=== PATIENT | female | born 1990 | race Two or more races ===

== ENCOUNTER 2018-10-05 20:07 | Emergency (ER) | payer MEDICAID ==
[~2018-10-05] VITALS: Ht 154.9 cm; Wt 57.6 kg
[2018-10-05 20:39] VITALS: BP 122/68
== END 2018-10-05 22:50 | disposition left against medical advice (07) ==
LOC: ER 20:18
DX: M54.5 Low back pain (principal); V49.9XXA Car occupant (driver) (passenger) injured in unspecified traffic accident, initial encounter; Y93.89 Activity, other specified; Y92.410 Unspecified street and highway as the place of occurrence of the external cause; Y99.8 Other external cause status; Z53.21 Procedure and treatment not carried out due to patient leaving prior to being seen by health care provider
CPT/HCPCS: 72100

== ENCOUNTER 2019-03-09 05:18 | Emergency (ER) | payer MEDICAID ==
[~2019-03-09] VITALS: Ht 154.9 cm; Wt 54.4 kg
[2019-03-09 06:40] VITALS: BP 120/77
[2019-03-09] MEDS ORDERED: KETOROLAC TROMETH 60MG/2ML VIAL IM ONE (06:45)
== END 2019-03-09 07:21 | disposition home or self-care (01) ==
LOC: ER 05:18
DX: S16.1XXA Strain of muscle, fascia and tendon at neck level, initial encounter (principal); M54.12 Radiculopathy, cervical region; Z33.1 Pregnant state, incidental; F17.210 Nicotine dependence, cigarettes, uncomplicated; Z88.8 Allergy status to other drugs, medicaments and biological substances; X50.1XXA Overexertion from prolonged static or awkward postures, initial encounter; Y93.89 Activity, other specified; Y92.89 Other specified places as the place of occurrence of the external cause; Y99.8 Other external cause status
CPT/HCPCS: 81025; 96372; 99283; J1885

== ENCOUNTER 2020-03-11 17:27 | Emergency (ER) | payer MEDICAID, OTHER ==
[~2020-03-11] VITALS: Ht 154.9 cm; Wt 67.6 kg
[2020-03-11 17:45] VITALS: BP 128/80
== END 2020-03-11 20:46 | disposition home or self-care (01) ==
LOC: ER 17:27
DX: S46.912A Strain of unspecified muscle, fascia and tendon at shoulder and upper arm level, left arm, initial encounter (principal); M62.838 Other muscle spasm; M54.2 Cervicalgia; F17.210 Nicotine dependence, cigarettes, uncomplicated; V43.62XA Car passenger injured in collision with other type car in traffic accident, initial encounter; Y93.89 Activity, other specified; Y92.488 Other paved roadways as the place of occurrence of the external cause; Y99.8 Other external cause status
CPT/HCPCS: 72040

== ENCOUNTER 2021-10-21 07:36 | Observation (INO) | payer MEDICAID ==
[~2021-10-21 07:36] MED LIST: PREN-96 PO
[2021-11-12] MEDS ORDERED: METH500T22 PO (20:27)
[2021-11-12] MEDS ORDERED: DULO20CA PO (20:28)
[2021-11-20] MEDS ORDERED: CEPH-322 PO (15:32)
== END 2021-11-20 15:50 | disposition home or self-care (01) ==
LOC: LDRP 11-20 14:51
PROVIDERS: ADMIT Obstetrics & Gynecology Obstetrics; ATTEND Obstetrics & Gynecology Obstetrics
DX: O47.03 False labor before 37 completed weeks of gestation, third trimester (principal); O99.323 Drug use complicating pregnancy, third trimester; F12.90 Cannabis use, unspecified, uncomplicated; Z3A.33 33 weeks gestation of pregnancy; Z87.891 Personal history of nicotine dependence
CPT/HCPCS: 59025; 81002; 94760; G0378

== ENCOUNTER 2021-11-12 16:10 | Observation (INO) | payer MEDICAID ==
[~2021-11-12] VITALS: Ht 154.9 cm; Wt 67.1 kg
[2021-11-12 17:53] LABS: Alcohol, Urine < 3.0 mg/dL (0-10); Barbiturate Scree,Urine NEGATIVE (NEGATIVE); Benzodiazephine Screen, Urine NEGATIVE (NEGATIVE); Cocaine Screen, Urine NEGATIVE (NEGATIVE); Opiate Scree,Urine NEGATIVE (NEGATIVE); Phencyclidine Screen, Urine NEGATIVE (NEGATIVE)
[2021-11-12] MEDS ORDERED: LACTATED RINGER'S 1,000 ML IV ONE (18:00)
[2021-11-12] MEDS ORDERED: TERBUTALINE SULFATE 1 MG/ML 1ML VIAL SC SCH (19:00)
[2021-11-12 19:06] LABS: Amphetamine Screen, Urine POSITIVE (NEGATIVE); Cannabinoid Screen, Urine 105/POS (NEGATIVE)
[2021-11-12 19:21] LABS: Urine Bacteria MANY /hpf (None Seen); Urine Blood Negative /uL (Negative); Urine Specific Gravity 1.012 (1.001-1.035); Urine WBC 4 /hpf (0 - 5)
[2021-11-12] MEDS ORDERED: ceFAZolin 1GM/50ML 50 ML IV ONE (20:00)
[2021-11-12] MEDS ORDERED: METH500T22 PO (20:27)
[2021-11-12] MEDS ORDERED: DULO20CA PO (20:28)
== END 2021-11-12 22:25 | disposition home or self-care (01) ==
LOC: LDRP 16:10 → UNDOADMOB 16:10 → LDRP 16:26 → UNDODISOB 22:25
PROVIDERS: ADMIT Obstetrics & Gynecology; ATTEND Obstetrics & Gynecology
DX: O60.03 Preterm labor without delivery, third trimester (principal); O42.913 Preterm premature rupture of membranes, unspecified as to length of time between rupture and onset of labor, third trimester; Z3A.32 32 weeks gestation of pregnancy; Z98.891 History of uterine scar from previous surgery; Z79.899 Other long term (current) drug therapy
CPT/HCPCS: 59025; 76815; 76817; 76818; 80307; 81001; 81002; 94760; 96361; 96365; 96372; G0378; J0690; J3105; 96360

== ENCOUNTER 2021-12-15 11:58 | Observation (INO) | payer MEDICAID ==
[~2021-12-15] VITALS: Ht 154.9 cm; Wt 73.9 kg
[~2021-12-15 11:58] MED LIST changes: +CEPH-322 PO; +DULO20CA PO; +METH500T22 PO
[2021-12-15 12:57] LABS: Alcohol, Urine < 3.0 mg/dL (0-10); Amphetamine Screen, Urine NEGATIVE (NEGATIVE); Barbiturate Scree,Urine NEGATIVE (NEGATIVE); Benzodiazephine Screen, Urine NEGATIVE (NEGATIVE); Cannabinoid Screen, Urine NEGATIVE (NEGATIVE); Cocaine Screen, Urine NEGATIVE (NEGATIVE); Opiate Scree,Urine NEGATIVE (NEGATIVE); Phencyclidine Screen, Urine NEGATIVE (NEGATIVE)
[2021-12-15 13:30] LABS: Urine Bacteria FEW /hpf (None Seen); Urine Blood Negative /uL (Negative); Urine Specific Gravity 1.005 (1.001-1.035); Urine WBC 4 /hpf (0 - 5)
[2021-12-15 14:17] LABS: Hematocrit 34.7 % (36.0-46.0); Hemoglobin 11.7 g/dL (12.2-16.2); Mean Corpuscular Hemoglobin 27.9 pg (28.0-32.0); Mean Corpuscular Hgb Conc. 33.7 g/dL (32.0-36.0); Mean Corpuscular Volume 82.8 fL (80.0-100.0); Red Blood Cells 4.19 10^6/uL (4.0-5.20); Red Cell Distribution Width 14.1 % (11.8-14.3); White Blood Cell 10.8 10^3/uL (4.4-10.8)
[2021-12-15 14:20] LABS: Basophils % (manual) 0 (0.0-2.0); Blast Cells 0; Myelocytes % 0; Promyelocytes % 0; Reactive Lymphocytes 0
[2021-12-15 15:52] LABS: Band Neutrophils % (manual) 4; Eosinophils % (manual) 1 (0-7); Lymphocytes % (manual) 22 (10.0-50.0); Metamyelocytes % 3; Monocytes % (manual) 6 (0-12)
[2021-12-16 06:07] LABS: RPR Non Reactive (Non Reactive)
== END 2021-12-15 14:44 | disposition home or self-care (01) ==
LOC: UNDOADMOB 11:58 → LDRP 11:58
PROVIDERS: ADMIT Obstetrics & Gynecology; ATTEND Obstetrics & Gynecology
DX: O36.5930 Maternal care for other known or suspected poor fetal growth, third trimester, not applicable or unspecified (principal); O36.8930 Maternal care for other specified fetal problems, third trimester, not applicable or unspecified; Z3A.37 37 weeks gestation of pregnancy; Z79.899 Other long term (current) drug therapy
CPT/HCPCS: 36415; 59025; 76818; 80307; 81001; 81002; 83036; 85007; 85027; 86592; 87491; 87591; 94760; G0378

== ENCOUNTER 2021-12-22 17:00 | Inpatient (IN) | payer MEDICAID ==
[~2021-12-22] VITALS: Ht 154.9 cm; Wt 77.1 kg
[2021-12-24] MEDS ORDERED: PHENYLEPHRINE HCL 10 MG/ML VL IV ONE (13:40)
[2021-12-24] MEDS ORDERED: LACTATED RINGER'S 1,000 ML IV ONE (16:00)
[2021-12-24] MEDS ORDERED: ceFAZolin 1GM/50ML 50 ML IV ONE ×2 (16:00→16:28)
[2021-12-24] MEDS ORDERED: LACTATED RINGER'S 1,000 ML IV SCH (16:00)
[2021-12-24] MEDS ORDERED: fentaNYL CITRATE 100 MCG/2 ML VL ONE (16:35)
[2021-12-24] MEDS ORDERED: MORPHINE SULF PF 5 MG/10 ML VIAL ONE (16:35)
[2021-12-24] MEDS ORDERED: HYDR-4902 PO (16:36)
[2021-12-24] MEDS ORDERED: DOCU-94 PO (16:36)
[2021-12-24] MEDS ORDERED: IBUP800T27 PO (16:36)
[2021-12-24] MEDS ORDERED: ceFAZolin 1GM/50ML 50 ML IV SCH ×2 (16:45→22:00)
[2021-12-24] MEDS ORDERED: ONDANSETRON HCL 4 MG/2 ML VIAL IV PRN (16:45)
[2021-12-24] MEDS ORDERED: LACT. RINGERS/OXYTOCIN 20UNITS 1,000 ML IV ONE (16:45)
[2021-12-24 17:12] LABS: Eosinophils # (auto) 0.2 10 ^3/uL (0-0.8); Eosinophils % (auto) 1.6 % (0.0-7.0); Hemoglobin 11.3 g/dL (12.2-16.2); Lymphocytes % (auto) 12.4 % (10.0-50.0); Mean Corpuscular Hgb Conc. 32.1 g/dL (32.0-36.0); Mean Corpuscular Volume 83.6 fL (80.0-100.0); Monocytes # (auto) 0.8 10 ^3/uL (0-1.3)
[2021-12-24 17:14] LABS: Basophils # (auto) 0 10 ^3/uL (0-0.2); Basophils % (auto) 0.4 % (0.0-2.0); Hematocrit 35.3 % (36.0-46.0); Lymphocytes # (auto) 1.6 10 ^3/uL (0.4-5.4); Mean Corpuscular Hemoglobin 26.8 pg (28.0-32.0); Monocytes % (auto) 5.8 % (0.0-12.0); Neutrophils # (auto) 10.6 10 ^3/uL (1.6-8.6); Neutrophils % (auto) 79.8 % (37.0-80.0); Red Blood Cells 4.22 10^6/uL (4.0-5.20); Red Cell Distribution Width 14.3 % (11.8-14.3); White Blood Cell 13.3 10^3/uL (4.4-10.8)
[2021-12-24 17:25] LABS: Urine Bacteria FEW /hpf (None Seen); Urine Blood 1+ /uL (Negative); Urine Specific Gravity 1.011 (1.001-1.035); Urine WBC 109 /hpf (0 - 5)
[2021-12-24] MEDS ORDERED: oxyTOCIN 10 UNIT/ML 10ML VIAL ONE (17:25)
[2021-12-24] MEDS ORDERED: ONDANSETRON HCL 4 MG/2 ML VIAL ONE (17:25)
[2021-12-24] MEDS ORDERED: METOCLOPRAMIDE HCL 5MG/ml INJ 2ml VIAL ONE (17:25)
[2021-12-24 17:29] LABS: Albumin 2.4 g/dL (3.4-5.0); Calcium 8.2 mg/dL (8.5-10.1)
[2021-12-24 17:30] LABS: Alcohol, Urine < 3.0 mg/dL (0-10); Amphetamine Screen, Urine NEGATIVE (NEGATIVE); Barbiturate Scree,Urine NEGATIVE (NEGATIVE); Benzodiazephine Screen, Urine NEGATIVE (NEGATIVE); Cocaine Screen, Urine NEGATIVE (NEGATIVE); Opiate Scree,Urine NEGATIVE (NEGATIVE); Phencyclidine Screen, Urine NEGATIVE (NEGATIVE)
[2021-12-24 17:32] LABS: Bilirubin, Total 0.2 mg/dL (0.2-1.0); Total Protein 6.5 g/dL (6.4-8.2)
[2021-12-24 17:36] LABS: INR 0.86 (0.9-1.15); Partial Thromboplastin Time 25.4 sec (24.6-33.4)
[2021-12-24 17:38] LABS: Cannabinoid Screen, Urine POSITIVE (NEGATIVE)
[2021-12-24 20:00] VITALS: BP 99/70
[2021-12-24] MEDS ORDERED: ACETAMINOPHEN IV 1000 MG/100ML (10MG/ML) IV PRN (20:30)
[2021-12-24] MEDS ORDERED: GUM (CHEWING) 1 GUM CHEW CHEW ONE (20:30)
[2021-12-24 21:00] VITALS: BP_SYST 118; BP_SYST 123; BP_DIAS 60; BP_DIAS 69
[2021-12-24 22:00] VITALS: BP 110/69
[2021-12-24 23:00] VITALS: BP_SYST 112; BP_SYST 120; BP_DIAS 64; BP_DIAS 76
[2021-12-24 23:25] LABS: Basophils # (auto) 0.1 10 ^3/uL (0-0.2); Basophils % (auto) 0.6 % (0.0-2.0); Eosinophils # (auto) 0.3 10 ^3/uL (0-0.8); Eosinophils % (auto) 1.4 % (0.0-7.0); Hematocrit 36.2 % (36.0-46.0); Lymphocytes # (auto) 1.8 10 ^3/uL (0.4-5.4); Mean Corpuscular Hemoglobin 27.6 pg (28.0-32.0); Mean Corpuscular Volume 83.7 fL (80.0-100.0); Monocytes # (auto) 0.8 10 ^3/uL (0-1.3); Monocytes % (auto) 4.6 % (0.0-12.0); Neutrophils # (auto) 15.3 10 ^3/uL (1.6-8.6); Neutrophils % (auto) 83.4 % (37.0-80.0); Red Blood Cells 4.33 10^6/uL (4.0-5.20); Red Cell Distribution Width 14.1 % (11.8-14.3); White Blood Cell 18.3 10^3/uL (4.4-10.8)
[2021-12-25] VITALS (22 sets, daily range): BP systolic 99–132; BP diastolic 60–78
[2021-12-25] MEDS: ceFAZolin 1GM/50ML 50 ML IV SCH ×3 (00:27→16:00)
[2021-12-25 07:57] LABS: Basophils # (auto) 0.1 10 ^3/uL (0-0.2); Basophils % (auto) 0.4 % (0.0-2.0); Eosinophils # (auto) 0.2 10 ^3/uL (0-0.8); Eosinophils % (auto) 1.2 % (0.0-7.0); Hematocrit 34.3 % (36.0-46.0); Hemoglobin 11.4 g/dL (12.2-16.2); Lymphocytes # (auto) 1.4 10 ^3/uL (0.4-5.4); Lymphocytes % (auto) 9.6 % (10.0-50.0); Mean Corpuscular Hemoglobin 27.6 pg (28.0-32.0); Mean Corpuscular Hgb Conc. 33.2 g/dL (32.0-36.0); Mean Corpuscular Volume 83.3 fL (80.0-100.0); Monocytes # (auto) 0.8 10 ^3/uL (0-1.3); Monocytes % (auto) 5.6 % (0.0-12.0); Neutrophils # (auto) 12.4 10 ^3/uL (1.6-8.6); Neutrophils % (auto) 83.2 % (37.0-80.0); Red Blood Cells 4.11 10^6/uL (4.0-5.20); Red Cell Distribution Width 14.1 % (11.8-14.3); White Blood Cell 14.9 10^3/uL (4.4-10.8)
[2021-12-25] MEDS ORDERED: SODIUM CHLORIDE 0.9% 1,000 ML IV SCH (08:15)
[2021-12-25] MEDS ORDERED: HYDROcodone-ACET 5/325MG TAB PO PRN ×2 (08:15→21:45)
[2021-12-25] MEDS: SIMETHICONE 80 MG CHEWABLE TABLET PO SCH ×3 (12:00→21:57)
[2021-12-25] MEDS: IBUPROFEN 800 MG TAB PO PRN (18:30)
[2021-12-25] MEDS: DOCUSATE SOD 100 MG CAP PO SCH (21:57)
[2021-12-26 02:36] VITALS: BP 110/58
[2021-12-26 07:06] LABS: RPR Non Reactive (Non Reactive)
[2021-12-26 07:10] VITALS: BP 115/69
[2021-12-26] MEDS: SIMETHICONE 80 MG CHEWABLE TABLET PO SCH ×3 (07:33→17:34)
[2021-12-26] MEDS: DOCUSATE SOD 100 MG CAP PO SCH ×2 (07:33→17:35)
[2021-12-26] MEDS: IBUPROFEN 800 MG TAB PO PRN ×2 (09:19→17:35)
[2021-12-26 15:00] VITALS: BP 120/77
[2021-12-26] MEDS ORDERED: MEASLES, MUMPS & RUBELLA VAC(MMRII) 0.5ML SC ONE (17:00)
== END 2021-12-26 19:52 | disposition home or self-care (01) | DRG 540 ==
LOC: LDRP 12-24 14:56 → OBSVTOIN 12-24 15:45 → LDRP 12-24 19:02
PROVIDERS: ADMIT Obstetrics & Gynecology; ATTEND Obstetrics & Gynecology
PROC: 10D00Z1 Extraction of Products of Conception, Low, Open Approach (ICD-10-PCS; principal; 2021-12-24 16:34)
DX: O99.344 Other mental disorders complicating childbirth (principal); O99.324 Drug use complicating childbirth; F12.10 Cannabis abuse, uncomplicated; J45.909 Unspecified asthma, uncomplicated; O99.52 Diseases of the respiratory system complicating childbirth; F15.90 Other stimulant use, unspecified, uncomplicated; O34.211 Maternal care for low transverse scar from previous cesarean delivery; Z20.822 Contact with and (suspected) exposure to COVID-19; F31.70 Bipolar disorder, currently in remission, most recent episode unspecified; Z37.0 Single live birth; Z3A.38 38 weeks gestation of pregnancy; Z56.0 Unemployment, unspecified; Z81.8 Family history of other mental and behavioral disorders
CPT/HCPCS: 36415; 59025; 80053; 80307; 81001; 85025; 85610; 85730; 86592; 86850; 86900; 86901; 94760; 94762; 96361; 96365; 96366; G0378; J0690; J2405; J2590

== ENCOUNTER 2021-12-23 19:22 | Observation (INO) | payer MEDICAID ==
[~2021-12-23] VITALS: Ht 154.9 cm; Wt 73.9 kg
[2021-12-24] MEDS ORDERED: IBUP800T27 PO (16:36)
[2021-12-24] MEDS ORDERED: HYDR-4902 PO (16:36)
[2021-12-24] MEDS ORDERED: DOCU-94 PO (16:36)
== END 2021-12-23 21:24 | disposition home or self-care (01) ==
LOC: LDRP 19:22
PROVIDERS: ADMIT Obstetrics & Gynecology; ATTEND Obstetrics & Gynecology
DX: Z34.83 Encounter for supervision of other normal pregnancy, third trimester (principal); Z3A.38 38 weeks gestation of pregnancy; Z87.891 Personal history of nicotine dependence; Z91.040 Latex allergy status
CPT/HCPCS: 59025; 76818; 81002; G0378